=== PATIENT | female | born 1995 | race Caucasian/White ===

== ENCOUNTER → 2022-12-28 15:04 | Outpatient (CLI) | payer BC, SELFPAY | PROVIDERS: PCP Internal Medicine; Visit Provider Internal Medicine | DX: U07.1 COVID-19 (principal); R05.9 Cough, unspecified; J02.9 Acute pharyngitis, unspecified ==

== ENCOUNTER → 2023-01-05 13:52 | Outpatient (CLI) | payer BC, SELFPAY ==
[2023-01-05 14:34] LABS: Strep Scrn Group A (Rapid) Negative (Negative)
== END ==
PROVIDERS: PCP Internal Medicine; Visit Provider Internal Medicine
DX: Z20.822 Contact with and (suspected) exposure to COVID-19 (principal)
CPT/HCPCS: 87275; 87276; 87430